=== PATIENT | male | born 1965 | race Caucasian/White ===

== ENCOUNTER 2021-08-29 06:09 | Day surgery (SDC) | payer OTHER ==
[~2021-08-29] VITALS: Ht 167.6 cm; Wt 65.4 kg
--- NOTE | 2021-08-29 08:12 | NUR ---
08/29/21 0812 Shaheed Gaytan 0.15MG EPINEPHRINE (1MG/1ML) ADDED TO 30ML OF 0.5% BUPIVACAINE TO CREATE A LOCAL INJECTABLE SOLUTION OF 0.5% BUPIVACAINE WITH 1:200,000 EPINEPHRINE.
--- NOTE | 2021-08-29 09:22 | NUR ---
08/29/21 0922 [place] COLLINS STATES PAIN 12/10. JUST FINISHED DUONEB. O2 DROPPING INTO 80'S. PLACED ON 3L O2 PER NC. USING INCENTIVE SPIROMETER - DEMONSTRATED KNOWLEDGE AND USE.
== END 2021-08-29 10:20 | disposition home or self-care (01) ==
LOC: ORSCSDS 06:09
PROVIDERS: Podiatrist Foot & Ankle Surgery
PROC: 0QSK04Z Reposition Left Fibula with Internal Fixation Device, Open Approach (ICD-10-PCS; principal; 2021-08-29 07:30)
DX: S82.62XA Displaced fracture of lateral malleolus of left fibula, initial encounter for closed fracture (principal); W18.30XA Fall on same level, unspecified, initial encounter; I10 Essential (primary) hypertension; F17.220 Nicotine dependence, chewing tobacco, uncomplicated
CPT/HCPCS: A9270; C1713; J0171; J0690; J1100; J2250; J2405; J2704; J3010; J7120

== ENCOUNTER → 2021-12-30 | Outpatient (CLI) | payer OTHER ==
[2021-12-30 17:00] LABS: BASOPHILS ABSOLUTE AUTO 0.05 K/mm3 (0.00-0.23); BASOPHILS PERCENT AUTO 1 % (0-2); EOSINOPHILS ABSOLUTE AUTO 0.08 K/mm3 (0.00-0.68); EOSINOPHILS PERCENT AUTO 1 % (0-6); Hematocrit 43.4 % (37.0-53.0); Hemoglobin 15.4 g/dL (13.5-17.5); IMMATURE GRAN ABSOLUTE AUTO 0.02 K/mm3 (0.00-0.10); IMMATURE GRAN PERCENT AUTO 0 % (0-1); LYMPHOCYTES ABSOLUTE AUTO 1.07 K/mm3 (0.84-5.20); LYMPHOCYTES PERCENT AUTO 15 % (21-46); MONOCYTES ABSOLUTE AUTO 1.24 K/mm3 (0.16-1.47); MONOCYTES PERCENT AUTO 17 % (4-13); Mean Corpuscular HGB 31.7 pg (26.0-34.0); Mean Corpuscular HGB Conc 35.5 g/dL (31.5-36.5); Mean Corpuscular Volume 89 fL (80-100); Mean Platelet Volume 8.3 fL (9.1-12.4); NEUTROPHILS ABSOLUTE AUTO 4.94 K/mm3 (1.96-9.15); NEUTROPHILS PERCENT AUTO 67 % (41-73); Platelet Count 231 K/mm3 (150-400); RDW Coefficient Variation 11.4 % (11.7-14.2); RDW Standard Deviation 36.7 fL (35.1-46.3); Red Blood Cell Count 4.86 M/mm3 (4.30-5.90)
[2021-12-30 17:19] LABS: Albumin, Blood 3.5 g/dL (3.4-5.0); Albumin/Globulin Ratio 0.8 (0.8-1.8); Bilirubin, Total 0.5 mg/dL (0.1-1.0); Bun/Creatinine Ratio 8.8 (12.0-20.0); Calcium, Blood 8.8 mg/dL (8.5-10.1); Creatinine, Blood 0.91 mg/dL (0.60-1.20); Globulin, Blood 4.5 g/dL (2.2-4.0)
== END | disposition home or self-care (01) ==
LOC: LAB SHORT 16:55
PROVIDERS: Physician Assistant
DX: R07.9 Chest pain, unspecified (principal)
CPT/HCPCS: 80053; 84484; 85025

== ENCOUNTER 2025-03-19 20:57 | Emergency (ER) | payer SELFPAY ==
[~2025-03-19] VITALS: Ht 167.6 cm; Wt 67.1 kg
[2025-03-19 21:08] VITALS: BP 159/93
[2025-03-19 21:28] LABS: BASOPHILS ABSOLUTE AUTO 0.08 K/mm3 (0.00-0.23); BASOPHILS PERCENT AUTO 1 % (0-2); EOSINOPHILS ABSOLUTE AUTO 0.13 K/mm3 (0.00-0.68); EOSINOPHILS PERCENT AUTO 2 % (0-6); Hematocrit 41.8 % (37.0-53.0); Hemoglobin 14.2 g/dL (13.5-17.5); IMMATURE GRAN ABSOLUTE AUTO 0.01 K/mm3 (0.00-0.10); IMMATURE GRAN PERCENT AUTO 0 % (0-1); LYMPHOCYTES ABSOLUTE AUTO 2.85 K/mm3 (0.84-5.20); LYMPHOCYTES PERCENT AUTO 35 % (21-46); MONOCYTES ABSOLUTE AUTO 1.26 K/mm3 (0.16-1.47); MONOCYTES PERCENT AUTO 16 % (4-13); Mean Corpuscular HGB Conc 34.0 g/dL (31.5-36.5); Mean Corpuscular Volume 84 fL (80-100); NEUTROPHILS ABSOLUTE AUTO 3.77 K/mm3 (1.96-9.15); NEUTROPHILS PERCENT AUTO 47 % (41-73); NRBC ABSOLUTE 0.00 K/mm3 (0.00-0.02); NRBC Auto 0.0 /100 WBC (0.0-0.2); Platelet Count 250 K/mm3 (150-400); RDW Coefficient Variation 13.1 % (11.7-14.2); RDW Standard Deviation 40.1 fL (35.1-46.3)
[2025-03-19 21:43] LABS: Prothrombin Time Results 10.1 Sec (9.7-11.5)
[2025-03-19 22:30] LABS: Alanine Aminotransfer (ALT/SGP 41.0 U/L (12-78); Albumin, Blood 3.5 g/dL (3.4-5.0); Albumin/Globulin Ratio 0.7 (0.8-1.8); Anion Gap 9.0 mmol/L (3-11); Aspartate Aminotrans (AST/SGOT 65.0 U/L (12-37); Bilirubin, Total 0.3 mg/dL (0.1-1.0); Blood Urea Nitrogen 8.0 mg/dL (8-24); CO2, Blood 30.0 mmol/L (21-32); Calcium, Blood 8.7 mg/dL (8.5-10.1); Chloride, Blood 97.0 mmol/L (98-108); Creatinine, Blood 0.74 mg/dL (0.60-1.20); Globulin, Blood 4.9 g/dL (2.2-4.0); Glucose, Blood 133.0 mg/dL (70-99); Potassium, Blood 3.8 mmol/L (3.5-5.5); Sodium, Blood 132.0 mmol/L (136-145); Total Protein, Blood 8.4 g/dL (6.4-8.2)
[2025-03-19 22:31] LABS: Ethanol (Alcohol), Blood, Med 365.0 mg/dL
[2025-03-20] MEDS ORDERED: CEPH500 PO (00:12)
== END 2025-03-20 00:37 | disposition home or self-care (01) ==
LOC: ER 20:57
PROVIDERS: Student in an Organized Health Care Education/Training Program
DX: S31.117A Laceration without foreign body of abdominal wall, left flank without penetration into peritoneal cavity, initial encounter (principal); W19.XXXA Unspecified fall, initial encounter
CPT/HCPCS: 12032; 36415; 70450; 71260; 72125; 74177; 80053; 80320; 85025; 85610; 85730; 86850; 86900; 86901; 99284-25; Q9967

== ENCOUNTER 2025-03-20 03:56 | Emergency (ER) | payer SELFPAY ==
[~2025-03-20] VITALS: Ht 167.6 cm; Wt 65.8 kg
[~2025-03-20 03:56] MED LIST: CEPH500 PO
[2025-03-20 04:13] VITALS: BP 179/94
== END 2025-03-20 05:00 | disposition home or self-care (01) ==
LOC: ER 03:56
DX: Z48.00 Encounter for change or removal of nonsurgical wound dressing (principal); Z79.2 Long term (current) use of antibiotics; Z59.89 Other problems related to housing and economic circumstances
CPT/HCPCS: 99282